=== PATIENT | male | born 1990 | race Caucasian/White ===

== ENCOUNTER 2018-04-19 20:39 | Emergency (ER) | payer OTHER, SELFPAY ==
[2018-04-19 20:44] VITALS: BP 169/102; PULSE 94; RESP 18; TEMP 36.6; O2SAT 98
--- NOTE | 2018-04-19 21:14 | ED.GENADUL_ITS ---
Discharge Plan Disposition Patient Disposition: HOME Condition: Good Discharge Details Chief Complaint: Headache Clinical Impression: Headache Primary Care Provider: Falguni Pichardo ED Provider: Jose Perez [place] Meds and New Rx's Prescriptions: Continue epinephrine [EpiPen 2-Chon] 0.3 MG/0.3 ML auto-injector 0.3 mg IM ONCE Qty: 1 RF: 0 fluticasone 16 GM spray,suspension 2 spry NS DAILY Qty: 1 RF: 0 ibuprofen [Ibuprofen IB] 200 MG tablet 800 mg PO PRN PRNRF: 0 Discharge Instructions Instructions: General Headache (ED) Additional Instructions: Head CT tonight is negative. No clear etiology for the bump in the back of the head. There is no bleeding or skull changes. Please try Excedrin migraine type medication for headaches. Drink plenty fluids to stay hydrated. Follow- up with primary care next week if continued headaches or persistent bump. Return to emergency department if she develops fever, signs of infection, neurologic changes, other concerns. Referrals: Falguni Pichardo MD [Primary Care Provider] - Medical Decision Making Patient with left sided headaches and firm swelling left occipital area. Headaches throbbing and daily but do respond to Tylenol. Head trauma a few days ago and headache worse. Swelling noticed day after the trauma but did not hit head in that area. Neuro exam is normal. C-spine is non-tender and neck with full ROM. Will get head CT since headaches relatively new and recent trauma. Do not suspect SAH or meningitis so does not need LP if imaging negative. Head CT is normal. Brain is fine. Skull in tact. No clear etiology for the swelling. Will have patient try hot compresses in case hematoma related to previous trauma. Try exedrin migraine for headaches. Follow up with PCP next week if continued problems. Return to ED for neuro changes, fever, signs of infection. HPI General Mode of arrival: ambulatory . Date/Time Provider Initiated Documentation: 04/19/18 21:11 . Limitations to Documentation: no limitations . Information obtained by: patient . HPI Narrative: Patient presents to ED for evaluation of left-sided headache as well as a bump on the back of his head. Patient does not typically get headaches often. For the last 2 weeks he has been having daily headaches for which he is taking Tylenol. The headache is left-sided and throbbing in nature. There is no associated neurologic symptoms with it. Tylenol does make it go away but it comes back. He denies fevers. Over the weekend during a pony pull he actually struck the front of the left side of his head. He was dazed but not knocked unconscious. The following day he noticed a bump in the back of his head on the left side but does not recall striking the back of his head. He has no neck pain. He has no fever. He has no neurologic symptoms. He has no nausea/vomiting. He presents to ED [facility] for further evaluation. Related Data Home Medications Medication Instructions Recorded Confirmed epinephrine [EpiPen 2-Chon] 0.3 mg IM ONCE #1 pack 01/01/17 fluticasone 2 spry NS DAILY #1 bottle 01/01/17 ibuprofen [Ibuprofen IB] 800 mg PO PRN PRN 01/03/17 01/03/17 Allergies Allergy/AdvReac Type Severity Reaction Status Date / Time iodine Allergy Severe Anaphylaxsi Unverified 01/27/17 15:24 s shellfish derived Allergy Severe Anaphylaxsi Unverified 01/27/17 15:24 s General Stated Complaint: Headache BRAYAN: 3 Review of Systems Constitutional Denies chills, Denies fatigue, Denies fever(s), Reports headache(s), Denies malaise and Denies weakness Eyes Denies change in vision, Denies loss of vision, Denies other visual disturbances and Denies eye pain ENT Denies dizziness, Denies otalgia, Denies facial pain, Reports headache(s), Denies neck pain, Denies sinus pain, Denies sinus pressure and Denies sore throat Cardiovascular Denies chest pain, Denies syncope, Denies pedal edema, Denies palpitations and Denies dyspnea Respiratory Denies cough and Denies dyspnea Gastrointestinal Denies abdominal pain, Denies diarrhea, Denies nausea and Denies vomiting Musculoskeletal Denies abnormal gait, Denies back pain, Denies neck pain and Denies numbness Integumentary/Breasts Denies rash Neurologic Denies abnormal speech, Denies abnormal gait, Denies confusion, Denies dizziness , Denies syncope, Reports headache(s), Denies focal weakness, Denies loss of vision, Denies numbness, Denies sensory deficit, Denies paresthesias and Denies weakness Psychiatric Denies confusion Endocrine Denies fatigue and Denies palpitations [facility] Social History Smoking/Tobacco Use Status: Current every day Exam Const General: cooperative, comfortable and no acute distress Orientation: alert and oriented x3 HENMT Head: normocephalic, atraumatic, no scalp lesions, no scalp tenderness and other (firm swelling left occipital ridge area, minimally tender, not fluctuant) Ears: external ears normal Face and sinus: normal facial exam Eyes Conjunctivae: conjunctivae normal Sclera: sclerae normal Pupils: PERRL EOM: EOM intact bilaterally Neck Neck: full ROM, trachea midline and supple Back/Spine/Pelvis Cervical Spine: No cervical spinal tenderness Skin General skin exam: rashes and/or lesions noted Neuro General: alert, oriented x3, gait normal, moves all extremities, no focal motor deficits and CN's II-XI intact bilaterally Sensory Exam: no sensory deficits noted Extrem General: normal to inspection and full ROM Course Vital Signs Temperature 97.9 F 04/19/18 20:44 Pulse 94 H 04/19/18 20:44 Respiratory Rate 18 04/19/18 20:44 Blood Pressure 169/102 H 04/19/18 20:44 Pulse Oximetry 98 04/19/18 20:44 Temperature 97.9 F 04/19/18 20:44 Temperature Source Temporal Artery Scan 04/19/18 20:44 Pulse 94 H 04/19/18 20:44 Respiratory Rate 18 04/19/18 20:44 Respiratory Effort 04/19/18 20:44 Blood Pressure 169/102 H 04/19/18 20:44 Blood Pressure Position Sitting 04/19/18 20:44 Pulse Oximetry 98 04/19/18 20:44 Oxygen Delivery Method Room Air 04/19/18 20:44 Oxygen Flow Rate 0 04/19/18 20:44 Pain Level 8 04/19/18 20:44
--- NOTE | 2018-04-19 21:23 | DI.CT_ITS ---
SYMPTOMS/DIAGNOSIS: LEFT-SIDED HEADACHE, OCCIPITAL LUMP CT BRAIN, NONCONTRAST: No priors. No intracranial hemorrhage, midline shift or mass effect is identified. There is a normal root-white matter differentiation. The ventricles are intact. The basilar cisterns are patent. There is mild mucosal thickening in the maxillary sinuses bilaterally. There is opacification of a few ethmoid air cells bilaterally. The remaining visualized paranasal sinuses are clear. The mastoid air cells are well pneumatized. The calvarium is intact. IMPRESSION: Mild mucosal sinus disease, which may reflect sinusitis. Otherwise negative examination.
--- NOTE | 2018-04-19 21:51 | DI.VRAD_ITS ---
EXAM: CT Head Without Intravenous Contrast CLINICAL HISTORY: 27 years old, male; Signs and symptoms; Other: Left sided headache; Occipital TECHNIQUE: Axial computed tomography images of the head/brain without intravenous contrast. All CT scans at this facility use at least one of these dose optimization techniques: automated exposure control; mA and/or kV adjustment per patient size (includes targeted exams where dose is matched to clinical indication); or iterative reconstruction. Coronal and sagittal reformatted images were created and reviewed. COMPARISON: No relevant prior studies available. FINDINGS: Brain: No evidence of acute intracranial bleed. No mass lesion or mass effect. Garcia/white matter differentiation is unremarkable. Cerebellum is unremarkable. Cisterns are unremarkable. Brainstem is unremarkable. No suprasellar mass. Ventricles: Unremarkable. No ventriculomegaly. Bones/joints: Unremarkable. No acute fracture. Soft tissues: Unremarkable. Sinuses: Mucosal thickening in bilateral anterior ethmoid sinuses. Small amount of fluid in dependent portion of left anterior ethmoid air cells cannot definitively be excluded. Mastoid air cells: Unremarkable as visualized. No mastoid effusion. IMPRESSION: Mucosal thickening in bilateral anterior ethmoid sinuses. Small amount of fluid in dependent portion of left anterior ethmoid air cells cannot definitively be excluded. Please correlate with physical exam to exclude acute sinusitis. Dictated and Authenticated by: Ace Deleon MD. Ordering:LOY HAN MD
[2018-04-19 22:34] VITALS: BP 138/86; PULSE 86; RESP 16; TEMP 36.6; O2SAT 95
== END 2018-04-19 22:34 | disposition home or self-care (01) ==
PROVIDERS: Emergency Provider Emergency Medicine; PCP Family Medicine
DX: R51 Headache (principal)
CPT/HCPCS: 99284; 70450

== ENCOUNTER 2020-02-22 20:02 | Emergency (ER) | payer OTHER, SELFPAY ==
[2020-02-22 20:08] VITALS: BP 151/95; PULSE 88; RESP 20; TEMP 36.6; O2SAT 93
--- NOTE | 2020-02-22 20:08 | W.ED.GENAD ---
Discharge Plan Disposition Patient Disposition: HOME Condition: Good Discharge Details Chief Complaint: DentalOral Clinical Impression: Tooth and supporting structure disorder Primary Care Provider: Falguni Pichardo ED Provider: Jose Perez and New Rx's Prescriptions: New amoxicillin 500 mg capsule 500 mg PO TID Qty: 30 RF: 0 Continued epinephrine [EpiPen 2-Chon] 0.3 MG/0.3 ML auto-injector 0.3 mg IM ONCE Qty: 1 RF: 0 fluticasone propionate 16 GM spray,suspension 2 spry NS DAILY Qty: 1 RF: 0 Discharge Instructions Additional Instructions: Difficult to say whether true infection or not. Definitely appear to have wisdom tooth impaction. You will need follow-up with dentistry/oral surgery. We will place you on antibiotics in case infection present. Should return to ED for increasing facial pain and swelling, difficulty breathing, inability to swallow. Referrals: [facility] [Provider Group] Medical Decision Making Patient needs follow-up with dentistry/oral surgery. Appears to have both upper wisdom teeth impacted with questionable fracture to the right one. Difficult to say whether infection present or not. Will start amoxicillin and refer to dentistry. HPI General Mode of arrival: ambulatory. Date/Time Provider Initiated Documentation: 02/22/20 20:08. Limitations to Documentation: no limitations. Information obtained by: patient and RN notes reviewed. HPI Narrative: Patient presents to ED with right upper posterior dental pain. He feels that the pain is getting worse and becoming difficult to open mouth. Has not seen a dentist in a very long time. He occasionally notices some facial swelling. Denies fever. No difficulty breathing. Related Data Home Medications Medication Instructions Recorded Confirmed epinephrine [EpiPen 2-Chon] 0.3 mg IM ONCE #1 pack 01/01/17 05/19/18 fluticasone propionate 2 spry NS DAILY #1 bottle 01/01/17 05/19/18 amoxicillin 500 mg PO TID #30 cap 02/22/20 Previous Rx's Medication Instructions Recorded amoxicillin 500 mg PO TID #30 cap 02/22/20 Allergies Allergy/AdvReac Type Severity Reaction Status Date / Time iodine Allergy Severe Anaphylaxsi Verified 02/22/20 20:26 s shellfish derived Allergy Severe Anaphylaxsi Verified 02/22/20 20:26 s General BRAYAN: 3 Review of Systems Constitutional Constitutional: Denies fever(s) ENT Ears, Nose, Mouth, and Throat: Reports dental pain and Denies neck pain Cardiovascular Cardiovascular: Denies dyspnea Respiratory Respiratory: Denies cough and Denies dyspnea Musculoskeletal Musculoskeletal: Denies neck pain [facility] Social History Smoking/Tobacco Use Status: Current every day Tobacco Type: cigarettes Drug use: Never Substance use type: marijuana [place]/[employer]: No preference Special idalia needs: No Do you feel safe at home: Yes Do you feel safe in your relationship?: Yes Exam Const General: cooperative, healthy appearing, comfortable and no acute distress Orientation: alert and oriented x3 HENMT Head: normocephalic and atraumatic Ears: external ears normal Face and sinus: normal facial exam, no erythema and no edema Mouth: lip normal and tongue normal Teeth and gingiva: multiple restorations Other: Right upper wisdom tooth appears impacted and/or fractured. Apical percussion tenderness present. No obvious gingival abscess or drainage. There is chronic appearing granulation tissue involving the buccal mucosa.
[2020-02-22] MEDS: Amoxicillin 500 MG CAP PO (20:31)
== END 2020-02-22 20:35 | disposition home or self-care (01) ==
PROVIDERS: Emergency Provider Emergency Medicine; PCP Family Medicine
DX: K01.1 Impacted teeth (principal); R22.0 Localized swelling, mass and lump, head; K04.7 Periapical abscess without sinus
CPT/HCPCS: 99283